=== PATIENT | male | born 1965 | race Caucasian/White ===

== ENCOUNTER → 2017-05-12 | Outpatient (CLI) | payer OTHER | LOC: MRI 12:21 | DX: M25.511 Pain in right shoulder (principal) ==

== ENCOUNTER → 2018-04-06 | Outpatient (CLI) | payer OTHER | LOC: CAT 11:27 | DX: K57.90 Diverticulosis of intestine, part unspecified, without perforation or abscess without bleeding (principal); N20.0 Calculus of kidney; N40.0 Benign prostatic hyperplasia without lower urinary tract symptoms; K40.90 Unilateral inguinal hernia, without obstruction or gangrene, not specified as recurrent; I70.0 Atherosclerosis of aorta ==

== ENCOUNTER → 2020-03-03 | Outpatient (CLI) | payer OTHER | LOC: RAD 12:35 | DX: Z13.6 Encounter for screening for cardiovascular disorders (principal); E78.00 Pure hypercholesterolemia, unspecified; I25.10 Atherosclerotic heart disease of native coronary artery without angina pectoris ==